=== PATIENT | female | born 1990 | race Asian ===

== ENCOUNTER 2019-06-01 16:23 | Emergency (ER) | payer MEDICAID ==
[~2019-06-01] VITALS: Ht 172.7 cm; Wt 96.2 kg
--- NOTE | 2019-06-01 16:35 | NUR ---
[id number], CAME TO ER C/O "Abdominal pain/nausea/vomiting started around noon-worse now". RR IS EVEN AND UNLABORED WITH NAD NOTED. SKIN IS WARM AND DRY. PROVIDED WARM BLANKET FOR EVAL.
--- NOTE | 2019-06-01 16:38 | NUR ---
DR JONES AT BEDSIDE
--- NOTE | 2019-06-01 16:54 | NUR ---
US TECH AT BEDSIDE
[2019-06-01] MEDS ORDERED: MAG HYDROX/AL HYDROX/SIMETH 30 ML UDC ONE (16:59)
[2019-06-01] MEDS ORDERED: LIDOCAINE VISCOUS 2% UD 15 ML UDC ONE (16:59)
[2019-06-01] MEDS ORDERED: ONDANSETRON HCL/PF 4 MG/2 ML VIAL ONE (16:59)
[2019-06-01] MEDS ORDERED: PANTOPRAZOLE 40 MG VIAL ONE (16:59)
[2019-06-01] MEDS: IV NS 0.9% 1,000 ML BAG IV ONE (17:11)
[2019-06-01 17:12] LABS: BASOPHILS % (AUTO) 0.3 % (0.0-2.0); EOSINOPHILS % (AUTO) 0.1 % (0.0-6.0); HEMATOCRIT 33 % (33-45); HEMOGLOBIN 10.5 g/dL (11.5-14.8); LYMPHOCYTES # (AUTO) 1.6 /CMM (0.8-4.8); LYMPHOCYTES % (AUTO) 12.8 % (20.0-44.0); MEAN CORPUSCULAR HGB CONC 31 g/dl (31.0-36.0); MEAN CORPUSCULAR VOLUME 76 fL (82-100); MONOCYTES # (AUTO) 0.6 /CMM (0.1-1.30); MONOCYTES % (AUTO) 4.5 % (2.0-12.0); NEUTROPHILS # (AUTO) 10.4 /CMM (1.8-8.9); NEUTROPHILS % (AUTO) 82.3 % (43.0-81.0); PLATELET COUNT (AUTO) 411 /CMM (150-450); RED BLOOD CELL COUNT(AUTO) 4.42 MIL/uL (4.0-5.2); WHITE BLOOD COUNT (AUTO) 12.7 K/uL (4.3-11.0)
[2019-06-01] MEDS: MAG HYDROX/AL HYDROX/SIMETH 30 ML UDC PO ONE (17:12)
[2019-06-01] MEDS: ONDANSETRON HCL/PF 4 MG/2 ML VIAL IVP ONE (17:12)
[2019-06-01] MEDS: LIDOCAINE VISCOUS 2% UD 15 ML UDC MM ONE (17:12)
[2019-06-01] MEDS: PANTOPRAZOLE 40 MG VIAL IV ONE (17:13)
[2019-06-01 17:20] LABS: CALCIUM, SERUM 9.4 mg/dL (8.5-10.1); CREATININE 0.9 mg/dL (0.6-1.3); POTASSIUM 3.7 mmol/L (3.5-5.1)
[2019-06-01 17:27] LABS: ALBUMIN 3.8 g/dL (3.4-5.0); BILIRUBIN,DIRECT 0.1 mg/dL (0.0-0.2); BILIRUBIN,TOTAL 0.4 mg/dL (0.2-1.0); TOTAL PROTEIN, SERUM 8.6 g/dL (6.4-8.2)
[2019-06-01 18:03] LABS: BILIRUBIN,URINE Negative (NEGATIVE); BLOOD, URINE Small Ery/uL (NEGATIVE); COLOR,URINE Yellow (YELLOW); KETONES,URINE 40 (NEGATIVE); LEUKOCYTE ESTERASE ,URINE Negative (NEGATIVE); NITRITE, URINE Negative (NEGATIVE); PH,URINE 6.5 (5.0-8.0); PROTEIN,URINE Negative (NEGATIVE); UGLUCOSE Negative (NEGATIVE); UROBILINOGEN,URINE 0.2 EU/dL (0.2)
[2019-06-01 18:04] LABS: APPEARANCE,URINE SLIGHTLY HAZY (CLEAR)
[2019-06-01 18:13] LABS: BACTERIA,URINE Many /HPF (None Seen)
[2019-06-01 18:14] LABS: SQUAMOUS EPITHELIAL CELL,UR Many /HPF (None Seen); WBC,URINE 0-2 /HPF (0-3)
--- NOTE | 2019-06-01 18:56 | NUR ---
IV removed. Catheter intact and site benign. Pressure and 4x4 applied to site. No bleeding noted.Patient discharged to home in stable condition. Written and verbal after care instructions given. Patient verbalizes understanding of instruction.
[2019-06-01 18:57] VITALS: BP 112/58
== END 2019-06-01 18:58 | disposition home or self-care (01) ==
LOC: ER 16:23
DX: R10.13 Epigastric pain (principal); R11.2 Nausea with vomiting, unspecified
CPT/HCPCS: 36415; 76705; 80048; 80076; 81001; 83690; 84703; 85025; 87086; 96361; 96374; 96375; 99284; C9113; J2405; J7030; 81000-TC

== ENCOUNTER 2019-08-08 15:32 | Emergency (ER) | payer MEDICAID, OTHER ==
[~2019-08-08] VITALS: Ht 177.8 cm; Wt 99.8 kg
[2019-08-08] MEDS ORDERED: ACETAMINOPHEN ES 500 MG TABLET PO ONE (16:30)
[2019-08-08] MEDS ORDERED: IV NS 0.9% 1,000 ML BAG IV ONE (16:30)
[2019-08-08 16:31] LABS: BASOPHILS # (AUTO) 0.1 /CMM (0.0-0.2); BASOPHILS % (AUTO) 0.7 % (0.0-2.0); EOSINOPHILS % (AUTO) 0.3 % (0.0-6.0); HEMATOCRIT 35 % (33-45); HEMOGLOBIN 11.5 g/dL (11.5-14.8); LYMPHOCYTES # (AUTO) 2.4 /CMM (0.8-4.8); LYMPHOCYTES % (AUTO) 22.4 % (20.0-44.0); MEAN CORPUSCULAR HGB CONC 33 g/dl (31.0-36.0); MEAN CORPUSCULAR VOLUME 82 fL (82-100); MONOCYTES # (AUTO) 0.7 /CMM (0.1-1.30); MONOCYTES % (AUTO) 6.4 % (2.0-12.0); NEUTROPHILS # (AUTO) 7.4 /CMM (1.8-8.9); NEUTROPHILS % (AUTO) 70.2 % (43.0-81.0); PLATELET COUNT (AUTO) 282 /CMM (150-450); RED BLOOD CELL COUNT(AUTO) 4.24 MIL/uL (4.0-5.2); WHITE BLOOD COUNT (AUTO) 10.6 K/uL (4.3-11.0)
--- NOTE | 2019-08-08 16:44 | NUR ---
PT AWAKE ALERT, NOTED AMBULATORY, URINE OBTAINED AND SENT TO LAB.
--- NOTE | 2019-08-08 16:55 | NUR ---
US TECH AT BEDSIDE
--- NOTE | 2019-08-08 16:55 | NUR ---
US TECH AT BEDSIDE
[2019-08-08] MEDS ORDERED: ACETAMINOPHEN 325 MG TABLET ONE (16:57)
[2019-08-08 17:09] LABS: ALBUMIN 3.3 g/dL (3.4-5.0); BILIRUBIN,DIRECT 0.1 mg/dL (0.0-0.2); BILIRUBIN,TOTAL 0.2 mg/dL (0.2-1.0); CALCIUM, SERUM 9.6 mg/dL (8.5-10.1); CREATININE 0.6 mg/dL (0.6-1.3); POTASSIUM 3.8 mmol/L (3.5-5.1); TOTAL PROTEIN, SERUM 7.8 g/dL (6.4-8.2)
[2019-08-08 18:16] LABS: APPEARANCE,URINE Clear (CLEAR); BILIRUBIN,URINE Negative (NEGATIVE); BLOOD, URINE Negative Ery/uL (NEGATIVE); COLOR,URINE Yellow (YELLOW); KETONES,URINE Negative (NEGATIVE); LEUKOCYTE ESTERASE ,URINE Negative (NEGATIVE); NITRITE, URINE Negative (NEGATIVE); PROTEIN,URINE Negative (NEGATIVE); UGLUCOSE Negative (NEGATIVE); UROBILINOGEN,URINE 0.2 EU/dL (0.2)
[2019-08-08 19:36] VITALS: BP 141/81
--- NOTE | 2019-08-08 19:36 | NUR ---
iv discontinued. no bleeding noted.
== END 2019-08-08 19:37 | disposition home or self-care (01) ==
LOC: ER 15:36
DX: O46.8X1 Other antepartum hemorrhage, first trimester (principal); Z3A.12 12 weeks gestation of pregnancy
CPT/HCPCS: 36415; 76805; 80048; 80076; 81001; 84702; 85025; 85730; 99284; J7030; 81000-TC

== ENCOUNTER 2019-09-23 12:52 | Emergency (ER) | payer OTHER ==
--- NOTE | 2019-09-23 13:15 | NUR ---
CALLED TO TRIAGE, NO ANSWER
--- NOTE | 2019-09-23 13:24 | NUR ---
CALLED TO TRIAGE,NO ANSWER
--- NOTE | 2019-09-23 13:31 | NUR ---
CALLED PT IN [place], NO RESPONSE.
== END 2019-09-23 13:34 | disposition left against medical advice (07) ==
LOC: ER 12:53
DX: Z53.21 Procedure and treatment not carried out due to patient leaving prior to being seen by health care provider (principal)